=== PATIENT | female | born 1990 | race Caucasian/White ===

== ENCOUNTER 2018-04-18 11:29 | Emergency (ER) | payer MEDICAID ==
[~2018-04-18] VITALS: Ht 160 cm; Wt 156.7 kg
[2018-04-18 12:48] LABS: BASOPHILS # (AUTO) 0.05 x10^3/uL (0-0.1); BASOPHILS % (AUTO) 1 % (0-1); EOSINOPHILS # (AUTO) 0.27 x10^3/uL (0-0.4); EOSINOPHILS % (AUTO) 3 % (1-7); LYMPHOCYTES # (AUTO) 1.71 x10^3/uL (1-3.4); LYMPHOCYTES % (AUTO) 22 % (22-44); MD NO; MEAN CORPUSCULAR HEMOGLOBIN 28.1 pg (27.0-34.8); MEAN CORPUSCULAR HGB CONC 33.9 g/dL (32.4-35.8); MEAN CORPUSCULAR VOLUME 83.1 fL (80-100); MEAN PLATELET VOLUME 8.7 fL (7.4-10.4); MONOCYTES # (AUTO) 0.49 x10^3/uL (0.2-0.8); MONOCYTES % (AUTO) 6 % (2-9); NEUTROPHILS # (AUTO) 5.35 x10^3/uL (1.8-6.8); NEUTROPHILS % (AUTO) 68 % (42-75); PLATELET COUNT 311 x10^3/uL (130-400); RED BLOOD COUNT 5.39 x10^6/uL (3.82-5.3); RED CELL DISTRIBUTION WIDTH 15.1 % (9.6-15.2)
[2018-04-18 13:01] LABS: ALBUMIN 3.9 g/dL (3.4-5.0); ANION GAP 6 mmol/L (5-15); CALCIUM 8.8 mg/dL (8.5-10.1); CHLORIDE 109 mmol/L (98-107); CREATININE 0.78 mg/dL (0.55-1.02)
[2018-04-18 13:05] LABS: TROPONIN I < 0.015 ng/mL (0.000-0.045)
[2018-04-18 15:04] LABS: HCG UR SG 1.024 (1.003-1.030)
[2018-04-18] MEDS ORDERED: OMNIPAQUE 350 MG/ML, 100ML BOTTLE ONE (15:29)
[2018-04-18] MEDS ORDERED: APIXABAN 5 MG TABLET ONE (15:58)
[2018-04-18] MEDS ORDERED: APIXABAN 5 MG TABLET PO ONE (16:00)
[2018-04-18 17:19] VITALS: BP 125/85
== END 2018-04-18 17:22 | disposition home or self-care (01) ==
LOC: ED 14:00
DX: I26.99 Other pulmonary embolism without acute cor pulmonale (principal); G43.909 Migraine, unspecified, not intractable, without status migrainosus; F41.1 Generalized anxiety disorder; F32.9 Major depressive disorder, single episode, unspecified; K21.9 Gastro-esophageal reflux disease without esophagitis; J45.909 Unspecified asthma, uncomplicated
CPT/HCPCS: 36415; 71046; 71275; 80048; 81025; 82040; 84484; 85025; 85379; 93005; 99285; Q9967

== ENCOUNTER 2018-04-25 17:19 | Emergency (ER) | payer MEDICAID ==
[~2018-04-25] VITALS: Ht 160 cm; Wt 157.0 kg
[2018-04-25] MEDS ORDERED: APIX5TAB PO (17:25)
[2018-04-25] MEDS ORDERED: FAMOTIDINE 20 MG TABLET PO ONE (18:00)
[2018-04-25] MEDS ORDERED: DIPHENHYDRAMINE 25 MG CAPSULE PO ONE (18:00)
[2018-04-25] MEDS ORDERED: KETOROLAC 30 MG/1 ML ONE (19:13)
[2018-04-25] MEDS ORDERED: APIXABAN 5 MG TABLET PO ONE (19:30)
[2018-04-25] MEDS ORDERED: KETOROLAC 30 MG/1 ML IM ONE (19:30)
[2018-04-25 19:34] LABS: BASOPHILS # (AUTO) 0.05 x10^3/uL (0-0.1); BASOPHILS % (AUTO) 1 % (0-1); EOSINOPHILS # (AUTO) 0.36 x10^3/uL (0-0.4); EOSINOPHILS % (AUTO) 4 % (1-7); LYMPHOCYTES # (AUTO) 2.26 x10^3/uL (1-3.4); LYMPHOCYTES % (AUTO) 23 % (22-44); MD NO; MEAN CORPUSCULAR HEMOGLOBIN 28.3 pg (27.0-34.8); MEAN CORPUSCULAR VOLUME 83.3 fL (80-100); MEAN PLATELET VOLUME 8.8 fL (7.4-10.4); MONOCYTES # (AUTO) 0.65 x10^3/uL (0.2-0.8); MONOCYTES % (AUTO) 7 % (2-9); NEUTROPHILS # (AUTO) 6.52 x10^3/uL (1.8-6.8); NEUTROPHILS % (AUTO) 66 % (42-75); PLATELET COUNT 300 x10^3/uL (130-400); RED BLOOD COUNT 5.65 x10^6/uL (3.82-5.3); RED CELL DISTRIBUTION WIDTH 14.8 % (9.6-15.2)
[2018-04-25] MEDS ORDERED: APIXABAN 5 MG TABLET ONE (19:41)
[2018-04-25 19:43] LABS: ANION GAP 9 mmol/L (5-15); CALCIUM 9.2 mg/dL (8.5-10.1); CHLORIDE 106 mmol/L (98-107); CREATININE 0.92 mg/dL (0.55-1.02)
[2018-04-25 19:47] LABS: TROPONIN I < 0.015 ng/mL (0.000-0.045)
[2018-04-25 20:20] VITALS: BP 113/82
== END 2018-04-25 20:23 | disposition home or self-care (01) ==
LOC: ED 18:33
DX: R07.89 Other chest pain (principal); J45.909 Unspecified asthma, uncomplicated; K21.9 Gastro-esophageal reflux disease without esophagitis; F32.9 Major depressive disorder, single episode, unspecified; F41.1 Generalized anxiety disorder
CPT/HCPCS: 36415; 71045; 80048; 82040; 83880; 84484; 85025; 93005; 96372; 99285; J1885

== ENCOUNTER 2018-05-14 18:31 | Emergency (ER) | payer MEDICAID ==
[~2018-05-14] VITALS: Ht 160 cm; Wt 155.0 kg
[~2018-05-14 18:31] MED LIST: APIX5TAB PO
[2018-05-14] MEDS ORDERED: PARO40TA61 PO (19:11)
[2018-05-14] MEDS ORDERED: PROP40TA PO (19:11)
[2018-05-14 19:53] VITALS: BP 132/90
== END 2018-05-14 20:16 | disposition home or self-care (01) ==
LOC: ED 19:33
DX: J02.8 Acute pharyngitis due to other specified organisms (principal); J45.909 Unspecified asthma, uncomplicated; K21.9 Gastro-esophageal reflux disease without esophagitis; F32.9 Major depressive disorder, single episode, unspecified
CPT/HCPCS: 71046; 99284

== ENCOUNTER 2018-07-09 18:01 | Emergency (ER) | payer MEDICAID ==
[~2018-07-09] VITALS: Ht 160 cm; Wt 155.0 kg
[~2018-07-09 18:01] MED LIST changes: +PARO40TA61 PO; +PROP40TA PO
[2018-07-09 18:20] VITALS: BP 121/89
[2018-07-09] MEDS ORDERED: DEXAMETHASONE 4 MG TABLET PO ONE (18:30)
[2018-07-09] MEDS ORDERED: DEXAMETHASONE 4 MG TABLET ONE (19:20)
[2018-07-09] MEDS ORDERED: IBUPROFEN 200 MG TABLET PO ONE (19:30)
== END 2018-07-09 20:37 | disposition home or self-care (01) ==
LOC: ED 20:31
DX: B34.9 Viral infection, unspecified (principal); K21.9 Gastro-esophageal reflux disease without esophagitis; G43.909 Migraine, unspecified, not intractable, without status migrainosus
CPT/HCPCS: 71046; 87081; 87880; 99284

== ENCOUNTER 2018-10-04 16:39 | Emergency (ER) | payer MEDICAID ==
[~2018-10-04] VITALS: Ht 160 cm; Wt 150.0 kg
[2018-10-04 16:49] VITALS: BP 148/84
--- NOTE | 2018-10-04 16:53 | NUR ---
Pt wheeled to room with charge auditor.
--- NOTE | 2018-10-04 16:56 | NUR ---
XR at bedside.
--- NOTE | 2018-10-04 17:04 | NUR ---
Ice applied. Pt states that she was wearing only socks and her was coming [place] of the [employer] [place] and ran over her left foot. Pt states she tried to take ibuprofen, naproxen, and tried ice/heat with little effect.
--- NOTE | 2018-10-04 17:50 | NUR ---
Joanna WILKINSON, at bedside to discuss ED findings and POC.
== END 2018-10-04 18:13 | disposition home or self-care (01) ==
LOC: ED 18:02
DX: S90.02XA Contusion of left ankle, initial encounter (principal); X58.XXXA Exposure to other specified factors, initial encounter; Y93.89 Activity, other specified; Y92.410 Unspecified street and highway as the place of occurrence of the external cause; Y99.8 Other external cause status
CPT/HCPCS: 99283